=== PATIENT | male | born 1985 | race Caucasian/White ===

== ENCOUNTER → 2017-02-02 | Outpatient (CLI) | payer OTHER ==
--- NOTE | 2017-02-02 13:08 | MAMMOGRAPHY REPORT ---
MALE BILATERAL DIGITAL DIAGNOSTIC MAMMOGRAM TOMOSYNTHESIS WITH CAD AND TARGETED LEFT ULTRASOUND: 02/02 CLINICAL HISTORY: 31-year-old male who recently presented to the doctor's office with a cough. His provider found a lump in the 12:00 periareolar left breast on physical exam. The patient reports th e lump has been decreasing in size over the past week and a half. It was previous weight erythemato us as well. No drainage or nipple discharge. No family history of breast cancer. TECHNIQUE: Bilateral breast tomosynthesis in addition to standard 2D mammography was performed. Curr ent study was also evaluated with a Computer Aided Detection (CAD) system. COMPARISON: No prior exams were available for comparison. BREAST COMPOSITION: The breast parenchyma is nearly entirely fat. FINDINGS: A triangle skin palpable marker overlies the 12:00 periareolar left breast, denoting the l ump pointed out by the patient. There is minimal skin thickening near the area of concern. No obvi ous mass, architectural distortion or cluster of suspicious microcalcifications. On palpation, there is an ovoid 5 mm soft mobile mass. On ultrasound, there is a minimal skin thick ening and a horizontally oriented hypoechoic area within the dermis in the area of concern, within t he 12:00 periareolar left breast. Just deep to this focal skin thickening is mild increased echogen icity within the subdermal fat lobules. This could represent a resolving epidermal inclusion cyst o r other dermal lesion. There is no evidence of a suspicious solid or cystic mass. IMPRESSION: ACR BI-RADS CATEGORY 2: BENIGN, TARGETED ULTRASOUND ACR BI-RADS CATEGORY 1: NEGATIVE 1. There is no mammographic or targeted sonographic evidence of malignancy. 2. There is minimal skin thickening and a possible resolving epidermal inclusion cyst correlating w ith the area of palpable concern in the 12:00 periareolar left breast. Clinical follow-up to comple te resolution is recommended. These results and recommendations were discussed with the patient at the time of the exam. Approximately 10% of breast cancers are not detected with mammography. A negative mammographic repor t should not delay biopsy if a clinically suggestive mass is present. Iesha Polk M.D. ay/:02/02/2017 09:31:24 Manager Ethics: Nuha GASTON(Lillie)(David), [facility] letter sent: Normal 1/2 BI-RADS Code: ACR BI-RADS Category 2: Benign Ultrasound BI-RADS: ACR BI-RADS Category 1: Negative
== END | disposition home or self-care (01) ==
LOC: C.MAMM 08:32
PROVIDERS: ATTEND Internal Medicine
DX: N63 Unspecified lump in breast (principal)